=== PATIENT | female | born 1995 | race Caucasian/White ===

== ENCOUNTER 2022-09-25 15:00 | Emergency (ER) | payer OTHER ==
[2022-09-25 15:24] VITALS: BP 107/72; PULSE 88; RESP 18; TEMP 97.9; BMI 26.0
[2022-09-25] MEDS ORDERED: IBUPROFEN 600 MG TABLET (FP) PO ONE ×2 (17:30→17:31)
== END 2022-09-25 19:01 | disposition home or self-care (01) ==
LOC: JERFT 15:00
DX: S80.01XA Contusion of right knee, initial encounter (principal); W19.XXXA Unspecified fall, initial encounter
CPT/HCPCS: 73562-TC-RT-FY; 99283-25